=== PATIENT | male | born 1965 | race Caucasian/White ===

== ENCOUNTER 2023-12-09 04:10 | Emergency (ER) | payer MEDICAID ==
[~2023-12-09] VITALS: Ht 165.1 cm; Wt 68.0 kg
[2023-12-09] MEDS: IBUPROFEN 600 MG TABLET PO ONE (04:36)
[2023-12-09] MEDS: HYDROCODONE/APAP 5-325MG TABLET PO ONE (04:36)
[2023-12-09] MEDS ORDERED: ALBU18HF2 INH (05:21)
[2023-12-09] MEDS ORDERED: NAPR-1009 PO (05:21)
[2023-12-09 05:30] VITALS: BP 120/72; TEMP 98.7; O2SAT 98
== END 2023-12-09 05:31 | disposition home or self-care (01) ==
LOC: ER 04:26
DX: S20.211A Contusion of right front wall of thorax, initial encounter (principal); J44.9 Chronic obstructive pulmonary disease, unspecified; F32.A Depression, unspecified; F17.210 Nicotine dependence, cigarettes, uncomplicated; Z79.899 Other long term (current) drug therapy; W05.1XXA Fall from non-moving nonmotorized scooter, initial encounter; Y93.89 Activity, other specified; Y92.89 Other specified places as the place of occurrence of the external cause; Y99.8 Other external cause status
CPT/HCPCS: 71101; A4606; A4663